=== PATIENT | male | born 1975 | race Caucasian/White ===

== ENCOUNTER 2019-12-31 14:29 | Outpatient (CLI) | payer OTHER, SELFPAY ==
--- NOTE | 2019-12-31 14:46 | ECHO_ITS ---
Patient Info Name: Josh Mahan Age: 44 years : 1975 Gender: Male Ht: 70 in Wt: 220 lbs BSA: 2.25 m2 HR: 73 bpm BP: 142 / 87 mmHg Technical Quality: Fair Exam Date: 12/31/2019 2:50 PM Exam Location: [facility] Patient Status: Outpatient Admit Date: 12/31/2019 Staff Ordering Physician: Dani Serra DO Decker Operator: Fabi Mason RDCS Attending Provider: Dani Serra DO Referring Physician: Ponce TAIRQ; Exam Type: CA echo doppler color flow Study Info Indications I10 - Essential (primary) hypertension Complete two-dimensional, color flow and Doppler transthoracic echocardiogram is performed. Summary 1. Left ventricular chamber dimension is normal. 2. Left ventricular systolic function is normal, estimated at 60-65%. 3. The left ventricular diastolic function is normal. 4. E/e' 8 is minimally elevated. 5. There is trace mitral valve regurgitation. 6. No pulmonary hypertension, estimated pulmonary arterial systolic pressure is 24 mmHg. Left Ventricle E/e' 8 is minimally elevated. Left ventricular chamber dimension is normal. Left ventricular systolic function is normal, estimated at 60-65%. The left ventricular diastolic function is normal. Right Ventricle Right ventricular chamber dimension is normal. Right ventricular systolic function is normal. Left Atria Left atrial chamber dimension is normal. Right Atria Right atrial chamber dimension is normal. Aortic Valve The aortic valve is trileaflet. There is no aortic valve stenosis. There is no aortic valve regurgitation. Pulmonic Valve There is no pulmonic regurgitation. Mitral Valve There is no mitral valve stenosis. There is trace mitral valve regurgitation. Tricuspid Valve There is no tricuspid valve regurgitation. No pulmonary hypertension, estimated pulmonary arterial systolic pressure is 24 mmHg. Pericardium/Pleural There is no pericardial effusion. Inferior Vena Cava Normal inferior vena cava with >50% collapse upon inspiration consistent with normal right atrial pressure, 5 mmHg. Aorta The aortic root size at the sinus of Valsalva is normal. Left Ventricular Outflow Tract Name Value Normal LVOT 2D LVOT Diameter 2.0 cm LVOT Doppler LVOT Peak Velocity 104 cm/s LVOT Peak Gradient 4 mmHg LVOT Mean Gradient 2 mmHg LVOT VTI 19 cm LVOT VTI/AV VTI Ratio 0.8 LVOT Stroke Volume 62 ml LVOT CO 4.6 l/min LVOT CI 2.0 l/min/m2 Pulmonic Valve Name Value Normal RVOT Doppler RVOT Peak Gradient 2 mmHg PV Doppler
== END 2019-12-31 14:30 | disposition home or self-care (01) ==
PROVIDERS: PCP Family Medicine; Visit Provider Internal Medicine Cardiovascular Disease
DX: I10 Essential (primary) hypertension (principal); R55 Syncope and collapse
CPT/HCPCS: 93306

== ENCOUNTER 2021-07-30 07:35 | Outpatient (CLI) | payer OTHER, SELFPAY ==
--- NOTE | ~2021-07-30 | XR_ITS ---
EXAMINATION: XR chest 2V DATE: 07/30/2021 07:58 INDICATION: Nicotine dependence, unspecified TECHNIQUE: PA and lateral views of the chest are obtained. COMPARISON: 09/25/2019 FINDINGS: The lungs are free of acute opacities. There is no pleural effusion or pneumothorax. The ca rdiomediastinal silhouette is normal. The visualized bones and soft tissues are unremarkable. IMPRESSION: 1. No acute cardiopulmonary abnormality. Reviewed, dictated and finalized at location A.
[2021-07-30 18:22] LABS: Basophils Absolute Auto 0.1 K/mm3 (0.0-0.1); Basophils Percent Auto 1.2 % (0.2-1.2); Eosinophils Absolute Auto 0.7 K/mm3 (0-0.3); Eosinophils Percent Auto 9.3 % (0-4.4); Hemoglobin 14.5 g/dL (14.0-18.0); Immature Granulocyte Absolute 0.03 K/mm3 (0.00-0.031); Immature Granulocyte Percent A 0.4 % (0-0.5); Lymphocytes Absolute Auto 2.49 K/mm3 (0.9-3.2); Lymphocytes Percent Auto 32.5 % (18.3-44.2); Mean Corpuscular HGB Conc 31.5 g/dl (32-36); Mean Corpuscular Hemoglobin 26.5 pg (26-34); Mean Corpuscular Volume 83.9 fl (80-100); Mean Platelet Volume 9.9 fl (7.4-10.4); Monocytes Absolute Auto 0.8 K/mm3 (0.1-0.6); Monocytes Percent Auto 9.8 % (2.6-8.5); Neutrophils Absolute Auto 3.6 K/mm3 (1.3-6.7); Neutrophils Percent Auto 46.8 % (45.5-73.1); Platelet Count Result 251 k/mm3 (150-375); Red Blood Count 5.48 M/mm3 (4.6-6.20); Red Cell Distribution Width 13.3 % (11.5-14.5); White Blood Count 7.7 K/mm3 (4.5-10.0)
[2021-07-30 18:24] LABS: Add Urine Microscopic? NO; Appearance Urine Clear (Clear); Bilirubin Urine Negative (Negative); Blood Urine Negative (Negative); Color Urine Yellow (Yellow); Glucose Urine UA Negative (Negative); Ketones Urine Negative (Negative); Leukocyte Esterase Ur Negative LEU/UL (Negative); Nitrate Urine Negative (Negative); Protein Urine Negative (Negative); Specific Grav Ur 1.024 (1.001-1.035); Urobilinogen Urine Negative mg/dL (<2.0)
[2021-07-30 18:42] LABS: Alanine Aminotransferase 44 U/L (4-50); Albumin Level 4.3 g/dL (3.5-5.1); Alkaline Phosphatase 68 U/L (38-126); Anion Gap 9 mmol/L (8-16); Aspartate Amino Transferase 32 U/L (17-59); Bilirubin,Total 0.5 mg/dL (0.2-1.3); Blood Urea Nitrogen 14 mg/dL (9-20); Calcium 9.2 mg/dL (8.4-10.2); Carbon Dioxide 26 mmol/L (22-30); Chloride 104 mmol/L (98-107); Cholesterol 201 mg/dL (0-200); Estimated Glomerular Filt Rate > 60; Glucose 114 mg/dL (65-110); HDL Direct 42 mg/dL; Potassium 4.4 mmol/L (3.4-5.0); Sodium 139 mmol/L (137-145); Triglycerides 210 mg/dL (<150)
[2021-07-30 18:53] LABS: LDL Cholesterol Direct 99 mg/dL
[2021-07-30 19:45] LABS: Folic Acid 7.1 ng/mL (2.76->20)
[2021-07-30 20:49] LABS: Vitamin D 25 Hydroxy 28.9 ng/mL
== END 2021-07-30 07:36 | disposition home or self-care (01) ==
LOC: ANHBWCLAB 07:38
PROVIDERS: PCP Family Medicine; Visit Provider Family Medicine
DX: E78.5 Hyperlipidemia, unspecified (principal); R00.0 Tachycardia, unspecified; R79.89 Other specified abnormal findings of blood chemistry; I10 Essential (primary) hypertension; F17.200 Nicotine dependence, unspecified, uncomplicated; Z00.00 Encounter for general adult medical examination without abnormal findings; Z79.899 Other long term (current) drug therapy
CPT/HCPCS: 36415; 71046; 80053; 80061; 81003; 82306; 82607; 82746; 84443; 85025

== ENCOUNTER 2023-05-11 10:00 | Outpatient (CLI) | payer OTHER, SELFPAY ==
[2023-05-11 20:59] LABS: Hemoglobin A1C 5.5 % (<5.7)
[2023-05-11 21:05] LABS: Alanine Aminotransferase 30 U/L (6-50); Albumin Level 4.2 g/dL (3.5-5.1); Alkaline Phosphatase 70 U/L (38-126); Anion Gap 4 mmol/L (8-16); Aspartate Amino Transferase 72 U/L (17-59); Bilirubin,Total 0.4 mg/dL (0.2-1.3); Blood Urea Nitrogen 13 mg/dL (9-20); Calcium 8.7 mg/dL (8.4-10.2); Carbon Dioxide 29 mmol/L (22-30); Chloride 102 mmol/L (98-107); Cholesterol 212 mg/dL (0-200); Estimated Glomerular Filt Rate > 60; Glucose 103 mg/dL (65-110); HDL Direct 39 mg/dL; LDL Cholesterol Direct 132 mg/dL; Potassium 4.4 mmol/L (3.4-5.0); Sodium 135 mmol/L (137-145); Triglycerides 152 mg/dL (<150)
[2023-05-11 21:06] LABS: Total Protein 7.3 g/dL (6.3-8.2)
[2023-05-11 21:11] LABS: Hematocrit 46.1 % (42.0-52.0); Hemoglobin 13.9 g/dL (14.0-18.0); Mean Corpuscular HGB Conc 30.2 g/dl (32-36); Mean Corpuscular Hemoglobin 26.6 pg (26-34); Mean Corpuscular Volume 88.3 fl (80-100); Mean Platelet Volume 9.6 fl (7.4-10.4); Platelet Count Result 276 k/mm3 (150-375); Red Blood Count 5.22 M/mm3 (4.6-6.20); Red Cell Distribution Width 14.8 % (11.5-14.5); White Blood Count 6.4 K/mm3 (4.5-10.0)
== END 2023-05-11 10:01 | disposition home or self-care (01) ==
LOC: ANHBWCLAB 19:57
PROVIDERS: PCP Family Medicine; Visit Provider Family Medicine
DX: E78.5 Hyperlipidemia, unspecified (principal); I10 Essential (primary) hypertension; R73.09 Other abnormal glucose; J32.9 Chronic sinusitis, unspecified
CPT/HCPCS: 36415; 80053; 80061; 83036; 85027

== ENCOUNTER 2023-11-14 08:38 | Outpatient (CLI) | payer OTHER, SELFPAY ==
[2023-11-14 19:43] LABS: Basophils Absolute Auto 0.1 K/mm3 (0.0-0.1); Basophils Percent Auto 0.9 % (0.2-1.2); Eosinophils Absolute Auto 0.4 K/mm3 (0-0.3); Eosinophils Percent Auto 6.4 % (0-4.4); Hemoglobin 14.6 g/dL (14.0-18.0); Immature Granulocyte Absolute 0.01 K/mm3 (0.00-0.031); Immature Granulocyte Percent A 0.2 % (0-0.5); Lymphocytes Absolute Auto 2.11 K/mm3 (0.9-3.2); Lymphocytes Percent Auto 36.4 % (18.3-44.2); Mean Corpuscular HGB Conc 30.4 g/dl (32-36); Mean Corpuscular Volume 85.4 fl (80-100); Mean Platelet Volume 9.7 fl (7.4-10.4); Monocytes Absolute Auto 0.5 K/mm3 (0.1-0.6); Monocytes Percent Auto 9.3 % (2.6-8.5); Neutrophils Absolute Auto 2.7 K/mm3 (1.3-6.7); Neutrophils Percent Auto 46.8 % (45.5-73.1); Platelet Count Result 253 k/mm3 (150-375); Red Blood Count 5.62 M/mm3 (4.6-6.20); Red Cell Distribution Width 13.2 % (11.5-14.5); White Blood Count 5.8 K/mm3 (4.5-10.0)
[2023-11-14 20:42] LABS: Alanine Aminotransferase 33 U/L (6-50); Albumin Level 4.3 g/dL (3.5-5.1); Alkaline Phosphatase 74 U/L (38-126); Anion Gap 8 mmol/L (8-16); Aspartate Amino Transferase 35 U/L (17-59); Bilirubin,Total 0.5 mg/dL (0.2-1.3); Blood Urea Nitrogen 14 mg/dL (9-20); Calcium 9.1 mg/dL (8.4-10.2); Carbon Dioxide 25 mmol/L (22-30); Chloride 106 mmol/L (98-107); Cholesterol 245 mg/dL (0-200); Estimated Glomerular Filt Rate > 60; Glucose 112 mg/dL (65-110); HDL Direct 38 mg/dL; Potassium 4.4 mmol/L (3.4-5.0); Sodium 139 mmol/L (137-145); Triglycerides 199 mg/dL (<150)
[2023-11-14 20:55] LABS: LDL Cholesterol Direct 143 mg/dL
== END 2023-11-14 08:39 | disposition home or self-care (01) ==
LOC: ANHBWCLAB 08:39
PROVIDERS: PCP Family Medicine; Visit Provider Nurse Practitioner Adult Health
DX: I10 Essential (primary) hypertension (principal)
CPT/HCPCS: 36415; 80053; 80061; 85025

== ENCOUNTER 2024-03-28 06:32 | Outpatient (CLI) | payer OTHER, SELFPAY ==
[2024-03-28 19:19] LABS: Basophils Percent Auto 0.6 % (0.2-1.2); Eosinophils Absolute Auto 0.4 K/mm3 (0-0.3); Eosinophils Percent Auto 6.1 % (0-4.4); Hemoglobin 14.6 g/dL (14.0-18.0); Immature Granulocyte Absolute 0.02 K/mm3 (0.00-0.031); Immature Granulocyte Percent A 0.3 % (0-0.5); Lymphocytes Absolute Auto 2.32 K/mm3 (0.9-3.2); Mean Corpuscular HGB Conc 29.8 g/dl (32-36); Mean Corpuscular Hemoglobin 26.2 pg (26-34); Mean Platelet Volume 9.8 fl (7.4-10.4); Monocytes Absolute Auto 0.7 K/mm3 (0.1-0.6); Neutrophils Absolute Auto 3.4 K/mm3 (1.3-6.7); Platelet Count Result 245 k/mm3 (150-375); Red Blood Count 5.57 M/mm3 (4.6-6.20); Red Cell Distribution Width 14.2 % (11.5-14.5); White Blood Count 6.8 K/mm3 (4.5-10.0)
[2024-03-28 19:43] LABS: Alanine Aminotransferase 31 U/L (6-50); Albumin Level 4.5 g/dL (3.5-5.1); Alkaline Phosphatase 78 U/L (38-126); Anion Gap 5 mmol/L (4-12); Aspartate Amino Transferase 42 U/L (17-59); Bilirubin,Total 0.3 mg/dL (0.2-1.3); Blood Urea Nitrogen 15 mg/dL (9-20); Calcium 9.3 mg/dL (8.4-10.2); Carbon Dioxide 27 mmol/L (22-30); Chloride 104 mmol/L (98-107); Cholesterol 240 mg/dL (0-200); Estimated Glomerular Filt Rate > 60; Glucose 105 mg/dL (65-110); HDL Direct 39 mg/dL; Magnesium 2.3 mg/dL (1.6-2.3); Potassium 4.5 mmol/L (3.4-5.0); Sodium 136 mmol/L (137-145); Triglycerides 363 mg/dL (<150)
[2024-03-28 19:44] LABS: Vitamin D 25 Hydroxy 17.5 ng/mL
[2024-03-28 19:53] LABS: LDL Cholesterol Direct 139 mg/dL
[2024-03-28 20:10] LABS: Hemoglobin A1C 5.6 % (<5.7)
== END 2024-03-28 06:33 | disposition home or self-care (01) ==
PROVIDERS: PCP Nurse Practitioner Adult Health; Visit Provider Nurse Practitioner Adult Health
DX: R79.89 Other specified abnormal findings of blood chemistry (principal); R73.9 Hyperglycemia, unspecified; I10 Essential (primary) hypertension
CPT/HCPCS: 36415; 80053; 80061; 82306; 83036; 83735; 84443; 85025

== ENCOUNTER 2024-04-30 06:35 | Outpatient (CLI) | payer OTHER, SELFPAY ==
[2024-04-30 19:43] LABS: Alanine Aminotransferase 31 U/L (6-50); Albumin Level 4.4 g/dL (3.5-5.1); Alkaline Phosphatase 69 U/L (38-126); Aspartate Amino Transferase 48 U/L (17-59); Bilirubin,Total 0.5 mg/dL (0.2-1.3); Cholesterol 171 mg/dL (0-200); HDL Direct 40 mg/dL; Triglycerides 167 mg/dL (<150)
[2024-04-30 19:54] LABS: LDL Cholesterol Direct 104 mg/dL
== END 2024-04-30 06:36 | disposition home or self-care (01) ==
LOC: ANHBWCLAB 06:36
PROVIDERS: PCP Nurse Practitioner Adult Health; Visit Provider Nurse Practitioner Adult Health
DX: E78.5 Hyperlipidemia, unspecified (principal)
CPT/HCPCS: 36415; 80061; 80076

== ENCOUNTER 2024-09-06 08:44 | Day surgery (SDC) | payer OTHER, SELFPAY ==
[2024-08-22 08:41] VITALS: BMI 30.6
[2024-08-27 08:59] VITALS: BMI 32.5
--- NOTE | 2024-09-06 07:06 | WPDANESEPPF ---
Anes - Initial Pre Proc Eval Procedure: Operation Date: 09/06/24 11:00 Proposed Procedures p Diagnostic Colonoscopy - Brandt Nguyen MD Date/Time: 09/06/24 07:06 Surgeon: Brandt Nguyen MD Pre Op Diagnosis: positive cologuard test Patient Data Age: 48 Gender: M Height: 1.75 m Weight: 100 kg Allergies Allergy/AdvReac Type Severity Reaction Status Date / Time No Known Allergies Allergy Verified 09/06/24 10:15 Home Medications Medication Instructions Recorded Confirmed Type albuterol sulfate 90 mcg/actuation 1 puff inhalation Q4H PRN 11/15/23 09/06/24 Rx aerosol inhaler shortness of breath or wheezing #8.5 grams cholecalciferol (vitamin D3) 1,250 1,250 mcg PO WEEKLY #12 caps 03/29/24 09/06/24 Rx mcg (50,000 unit) capsule lisinopril 20 mg tablet 20 mg PO DAILY #90 tabs 08/13/24 09/06/24 Rx amlodipine 5 mg tablet 5 mg PO DAILY 08/27/24 09/06/24 History ibuprofen 200 mg tablet 200 mg PO Q6H PRN Pain 08/27/24 09/06/24 History ketoconazole 2 % topical cream 1 applic topical DAILY PRN Rash 08/27/24 History metoprolol succinate 100 mg 100 mg PO DAILY 08/27/24 09/06/24 History tablet,extended release 24 hr pravastatin 40 mg tablet 40 mg PO HS 08/27/24 09/06/24 History Patient hx anesthesia problems: none Family hx anesthesia problems: none Results Review: All pre-operative results and documents have been reviewed as part of the pre-operative evaluation. 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 Smoker Syncope (~09/2019) Tachycardia Surgical History Surgical History History of carpal tunnel release Family History Family History Grandparent Diabetes mellitus Social History Social History Smoking packs per day: 1 Smoking cigarettes per day: 20.0 Years smoked: 30 Smoking pack-years: 30.00 Smoking status: Current every day smoker Tobacco type: cigarettes Alcohol intake: current Drinks per week: 15 Substance use: current Substance use type: marijuana Other substance usage details: Daily Lack of Transportation: No Lack of Food: Never True Current Housing: I Have Housing Concerned About Future Housing: No Difficulty Paying Gas/Electric Bills: No Difficulty Paying for Meds: No Currently Unemployed: No Education: Trade/Vocational Certificate Difficulty w/ Childcare or Family Care: No Living arrangements: with family Spiritual care concerns: No Anes - Eval Final PreProcedure Day of Procedure 09/06/24 07:06 Patient weight: obese Heart: regular rate and rhythm Lungs: clear to auscultation Airway: Mallampati scale class II Neurological: alert and oriented Last oral intake: >/= 8 hours ASA classification: III Emergent: no Anesthetic plan: proceed Anesthesia type and monitoring: general GIVS and standard monitoring Results Review: All pre-operative results and documents have been reviewed as part of the pre-operative evaluation. Informed Consent: The patient's anesthetic plan and its attendant risks and benefits were discussed with the patient/family/POA. Questions were solicited and answers provided to the satisfaction of the patient/family/POA.
[2024-09-06 10:19] VITALS: BP 137/93; PULSE 90; RESP 18; TEMP 36.9; O2SAT 97; BMI 31.6
[2024-09-06] MEDS: LACTATED RINGERS 1,000 ML 150 ML IV CONT (10:24)
--- NOTE | 2024-09-06 10:37 | PM.HPGS ---
History of Present Illness History of Present Illness Consent: Risks, benefits, and alternatives have been discussed and questions answered. Patient agrees to proceed with procedure. Chief complaint: positive cologuard test Narrative: Josh Mahan is a 48 year old male presents for colonoscopy. Patient's current weight appetite and bowel movements are normal. He denies abdominal pain. Patient has had no bleeding. We history noncontributory. Recent Cologuard test was found to be positive. Patient presents today for screening colonoscopy for this reason. Review of Systems Review of Systems: All systems reviewed & are unremarkable except as noted in HPI and below PMFSH Past Medical History Medical History (Updated 05/02/24 @ 15:05 by Sylvie Paz APRN) Allergies Anxiety Arthritis Bronchitis Family history of osteoporosis Fatigue History of broken nose History of pericarditis Hyperlipidemia Hypertension (~09/2019) Intermittent palpitations Low serum vitamin D (~09/2019) Other termite technician (current) drug therapy Smoker Syncope (~09/2019) Tachycardia Surgical History Surgical History History of carpal tunnel release Family History Family History Grandparent Diabetes mellitus Social History Social History Smoking packs per day: 1 Smoking cigarettes per day: 20.0 Years smoked: 30 Smoking pack-years: 30.00 Smoking status: Current every day smoker Tobacco type: cigarettes Alcohol intake: current Drinks per week: 15 Substance use: current Substance use type: marijuana Other substance usage details: Daily Lack of Transportation: No Lack of Food: Never True Current Housing: I Have Housing Concerned About Future Housing: No Difficulty Paying Gas/Electric Bills: No Difficulty Paying for Meds: No Currently Unemployed: No Education: Trade/Vocational Certificate Difficulty w/ Childcare or Family Care: No Living arrangements: with family Spiritual care concerns: No Meds Home Medications and Allergies Home Medications Medication Instructions Recorded Confirmed Type albuterol sulfate 90 mcg/actuation 1 puff inhalation Q4H PRN 11/15/23 09/06/24 Rx aerosol inhaler shortness of breath or wheezing #8.5 grams cholecalciferol (vitamin D3) 1,250 1,250 mcg PO WEEKLY #12 caps 03/29/24 09/06/24 Rx mcg (50,000 unit) capsule lisinopril 20 mg tablet 20 mg PO DAILY #90 tabs 08/13/24 09/06/24 Rx amlodipine 5 mg tablet 5 mg PO DAILY 08/27/24 09/06/24 History ibuprofen 200 mg tablet 200 mg PO Q6H PRN Pain 08/27/24 09/06/24 History ketoconazole 2 % topical cream 1 applic topical DAILY PRN Rash 08/27/24 History metoprolol succinate 100 mg 100 mg PO DAILY 08/27/24 09/06/24 History tablet,extended release 24 hr pravastatin 40 mg tablet 40 mg PO HS 08/27/24 09/06/24 History Allergies Allergy/AdvReac Type Severity Reaction Status Date / Time No Known Allergies Allergy Verified 09/06/24 10:15 Vital Signs Vital Signs - 24 hr 09/06/24 10:19 Temperature 98.4 F Pulse Rate 90 Respiratory Rate 18 Blood Pressure 137/93 H Pulse Oximetry 97 Oxygen Delivery Room Air Exam Narrative: Physical exam reveals patient to be alert. Vital signs stable. Exam is unremarkable. Patient is anicteric. Auscultation and percussion. Is without murmur or extra sounds. Abdomen bowel sounds are present soft nontender with no organomegaly. Digital external rectal exam normal. Assessment and Plan Assessment and plan (1) Positive colorectal cancer screening using Cologuard test: Code(s): R19.5 - Other fecal abnormalities Status: Acute Assessment and Plan: Patient found to have positive Cologuard test. Screening colonoscopy to be performed today. Further recommendations may b
[2024-09-06 12:50] VITALS: BP 128/91; PULSE 100; RESP 20; O2SAT 98
--- NOTE | 2024-09-06 12:55 | SUR.OPER ---
no specimen collected for sigmoid polyp, aware
[2024-09-06 13:00] VITALS: BP 132/92; PULSE 94; RESP 20; O2SAT 99
[2024-09-06 13:10] VITALS: BP 145/101; PULSE 86; RESP 20; O2SAT 100
--- NOTE | 2024-09-06 13:33 | WPDANESPN ---
Anes - Prog Note Post-Op Date/Time: 09/06/24 13:33 Cardiovascular status: normal Respiratory status: normal Airway patency: baseline Mental status: baseline Post-Op hydration status: normal Vital Signs: Last Vital Signs Temp 36.9 C 09/06/24 10:19 Pulse 86 09/06/24 13:10 Resp 20 09/06/24 13:10 BP 145/101 H 09/06/24 13:10 Pulse Ox 100 09/06/24 13:10 O2 Del Method Room Air 09/06/24 13:10 Pain Score (VAS): 0 I/O: Intake & Output 09/05/24 09/06/24 09/06/24 23:59 07:59 15:59 Intake Total 800 Balance 800 Post-procedural complaints: none Patient Feedback: Patient satisfied with anesthetic care. Other Findings: Patient vital signs back to baseline. Patient denies nausea and vomiting. Patient's pain under control. Patient OK for discharge.
== END 2024-09-06 13:12 | disposition home or self-care (01) ==
PROVIDERS: PCP Nurse Practitioner Adult Health; Visit Provider Internal Medicine Gastroenterology
PROC: 0DJD8ZZ Inspection of Lower Intestinal Tract, Via Natural or Artificial Opening Endoscopic (ICD-10-PCS; CPT 45378; principal; 2024-09-06 11:00)
DX: R19.5 Other fecal abnormalities (principal); D12.3 Benign neoplasm of transverse colon; D12.5 Benign neoplasm of sigmoid colon; K64.8 Other hemorrhoids
CPT/HCPCS: 45385

== ENCOUNTER 2024-09-06 09:06 | Outpatient (NON) | payer OTHER, SELFPAY | END 2024-09-06 09:07 | disposition home or self-care (01) | LOC: ANHLAB 09-07 09:09 | PROVIDERS: PCP Nurse Practitioner Adult Health; Visit Provider Internal Medicine Gastroenterology | DX: D12.3 Benign neoplasm of transverse colon (principal); Z12.11 Encounter for screening for malignant neoplasm of colon | CPT/HCPCS: 88305 ==

== ENCOUNTER 2025-07-17 02:40 | Day surgery (SDC) | payer OTHER, SELFPAY ==
[2025-07-04 10:45] VITALS: BMI 33.0
--- OUTSIDE RECORDS SUMMARY | 2025-07-17 02:43 | XMS_ITS | Clinical Summary ---
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
--- OUTSIDE RECORDS SUMMARY | 2025-07-17 02:43 | XMS_ITS | Encounter Summary ---
Author Organization [facility] Address [address] [place] [address] Care Team Providers Care Shoe Repairman Name Role Phone Patirck Allen MD Primary Care Provider Unavail le Encounter Details Date Type Department Care Team (Late st Contact Info) Description 07/07/2012 Chart Note 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 Physical Therapy Discharge Summary Patient: Josh Mahan Date: 07/07/2012 Date of : 1975 Physician: Tunde Kim Diagnosis: thoracic outlet syndrome Josh Mahan was seen 03/08/12 for a total of 1 visit with 0 cancellations and 0 no shows. This patient did not return for further therapy visits following the last session noted above, therefore a complete re-evaluation of status was not completed. Treatments consisted of: HEP Instruction, Posture/Body Mechanics and Neuromuscular Re-Education Therapeutic Exercise to increase Strength and Flexibility. Objective Measurements: see initial note on 03/08/12 The patient discharged from therapy secondary to noncompliance. Please contact me if you have any questions. Thank you for this referral. Lara Esposito [facility] [address] [place] [address] documented in this encounter Plan of Treatment Not on file documented as of this encounter Visit Diagnoses Not on filedocumented in this encounter Care Teams Shoe Repairman Relationship Specialty Start Date End Date Patrick Allen MD PCP - General Internal Medicine 03/07/12 documented as of this encounter
[2025-07-17 08:39] VITALS: BP 161/96; PULSE 70; RESP 20; TEMP 35.9; O2SAT 100; BMI 33.3
[2025-07-17] MEDS: LACTATED RINGERS 1,000 ML 150 ML IV CONT (08:55)
--- NOTE | 2025-07-17 08:56 | P.PNAN_ITS ---
Anes - Initial Pre Proc Eval Procedure: Operation Date: 07/17/25 08:45 Proposed Procedures p Esophagogastroduodenoscopy - Terry Murguia MD Date/Time: 07/17/25 08:56 Surgeon: Terry Murguia MD Pre Op Diagnosis: Dysphagia, unspecified Patient Data Age: 49 Gender: M Height: 1.78 m Weight: 105.3 kg Last Vital Signs Temp 35.9 C L 07/17/25 08:39 Pulse 70 07/17/25 08:39 Resp 20 07/17/25 08:39 BP 161/96 H 07/17/25 08:39 Pulse Ox 100 07/17/25 08:39 O2 Del Method Room Air 07/17/25 08:39 Allergies Allergy/AdvReac Type Severity Reaction Status Date / Time No Known Allergies Allergy Verified 07/17/25 08:38 Home Medications ?Medication ?Instructions ?Recorded ?Confirmed ?Type albuterol sulfate 90 mcg/actuation 1 puff inhalation Q 4H PRN 11/15/23 07/04/25 Rx aerosol inhaler shortness of breath or wheez ing #8.5 grams cholecalciferol (vitamin D3) 1,250 1,250 mcg PO WEEKLY #12 caps 03/29/24 07/17/25 Rx mcg (50,000 unit) capsule ketoconazole 2 % topical cream 1 applic topical DAILY PRN Rash 08/27/24 07/17/25 History amlodipine 5 mg tablet See Rx Instructions .Route 0 04/17/25 07/17/25 Rx .COMPLEX #90 tabs lisinopril 20 mg tablet See Rx Instructions .Route 0 04/17/25 07/17/25 Rx .COMPLEX #90 tabs metoprolol succinate 100 mg See Rx Instructions .Route 04/17/25 07/17/25 Rx tablet,extended release 24 hr .COMPLEX #90 tabs pravastatin 40 mg tablet See Rx Instructions .Route 0 04/17/25 07/17/25 Rx .COMPLEX #90 tabs Patient hx anesthesia problems: none Family hx anesthesia problems: none Results Review: All pre-operative results and documents have been reviewed as part of the pre- operative evaluation. [facility] Past Medical History Medical History Hyperlipidemia Intermittent palpitations Arthritis History of broken nose Syncope (~09/2019) Anxiety History of pericarditis Tachycardia Low serum vitamin D (~09/2019) Family history of osteoporosis Smoker Other intermediate teacher (current) drug therapy Fatigue Hypertension (~09/2019) Bronchitis Allergies Surgical History Surgical History History of carpal tunnel release Family History Family History Grandparent Diabetes mellitus Social History Social History Smoking packs per day: 1 Smoking cigarettes per day: 20.0 Years smoked: 30 Smoking pack-years: 30.00 Smoking status: Current every day smoker Tobacco type: cigarettes Alcohol intake: current Drinks per week: 6 Substance use: current Substance use type: marijuana Other substance usage details: smokes marijuana several times a week Lack of Transportation: No Lack of Food: Never True Current Housing: I Have Housing Concerned About Future Housing: No Difficulty Paying Gas/Electric Bills: No Difficulty Paying for Meds: No Currently Unemployed: No Education: Trade/Vocational Certificate Difficulty w/ Childcare or Family Care: No Living arrangements: with family Spiritual care concerns: No Anes - Eval Final PreProcedure Day of Procedure 07/17/25 08:56 Patient weight: obese Heart: regular rate and rhythm Lungs: clear to auscultation Airway: Mallampati scale class II Neurological: alert and oriented Last oral intake: >/= 8 hours ASA classification: III Emergent: no Anesthetic plan: proceed Anesthesia type and monitoring: general GIVS and standard monitoring Results Review: All pre-operative results and documents have been reviewed as part of the pre- operative evaluation. Informed Consent: The patient's anesthetic plan and its attendant risks and benefits were discussed with the patient/family/POA. Questions were solicited and answers provided to the satisfaction of the patient/family/POA.
--- NOTE | 2025-07-17 09:31 | PM.HPGS ---
History of Present Illness History of Present Illness Consent: Risks, benefits, and alternatives have been discussed and questions answered. Patient agrees to proceed with procedure. Chief complaint: Dysphagia, unspecified Narrative: Josh Mahan is a 49 year old male with dysphagia for about 1 year, never had egd Review of Systems Review of Systems: All systems reviewed & are unremarkable except as noted in HPI and below PMFSH Past Medical History Medical History Hyperlipidemia Intermittent palpitations Arthritis History of broken nose Syncope (~09/2019) Anxiety History of pericarditis Tachycardia Low serum vitamin D (~09/2019) Family history of osteoporosis Smoker Other technician terminal and repeater (current) drug therapy Fatigue Hypertension (~09/2019) Bronchitis Allergies Surgical History Surgical History History of carpal tunnel release Family History Family History Grandparent Diabetes mellitus Social History Social History Smoking packs per day: 1 Smoking cigarettes per day: 20.0 Years smoked: 30 Smoking pack-years: 30.00 Smoking status: Current every day smoker Tobacco type: cigarettes Alcohol intake: current Drinks per week: 6 Substance use: current Substance use type: marijuana Other substance usage details: smokes marijuana several times a week Lack of Transportation: No Lack of Food: Never True Current Housing: I Have Housing Concerned About Future Housing: No Difficulty Paying Gas/Electric Bills: No Difficulty Paying for Meds: No Currently Unemployed: No Education: Trade/Vocational Certificate Difficulty w/ Childcare or Family Care: No Living arrangements: with family Spiritual care concerns: No Meds Home Medications and Allergies Home Medications ?Medication ?Instructions ?Recorded ?Confirmed ?Type albuterol sulfate 90 mcg/actuation 1 puff inhalation Q4H PRN 11/15/23 07/04/25 Rx aerosol inhaler shortness of breath or wheezing #8.5 grams cholecalciferol (vitamin D3) 1,250 1,250 mcg PO WEEKLY #12 caps 03/29/24 07/17/25 Rx mcg (50,000 unit) capsule ketoconazole 2 % topical cream 1 applic topical DAILY PRN Rash 08/27/24 07/17/25 History amlodipine 5 mg tablet See Rx Instructions .Route 04/17/25 07/17/25 Rx .COMPLEX #90 tabs lisinopril 20 mg tablet See Rx Instructions .Route 04/17/25 07/17/25 Rx .COMPLEX #90 tabs metoprolol succinate 100 mg See Rx Instructions .Route 04/17/25 07/17/25 Rx tablet,extended release 24 hr .COMPLEX #90 tabs pravastatin 40 mg tablet See Rx Instructions .Route 04/17/25 07/17/25 Rx .COMPLEX #90 tabs Allergies Allergy/AdvReac Type Severity Reaction Status Date / Time No Known Allergies Allergy Verified 07/17/25 08:38 Vital Signs Vital Signs - 24 hr 07/17/25 08:39 Temperature 96.7 F L Pulse Rate 70 Respiratory Rate 20 Blood Pressure 161/96 H Pulse Oximetry 100 Oxygen Delivery Room Air Exam Const: General: comfortable and no acute distress HENMT: Face/Nose/Sinus: Normal nares present Eyes: General: appearance normal, both eyes and all related structures Neck: Neck: no JVD Resp: Auscultation: clear to auscultation bilaterally Cardio: Rate: regular rate Rhythm: regular rhythm GI: Inspection: non-distended GI Palp: Yes Soft to palpation Skin: General skin exam: normal color Neuro: General: gait normal Speech: normal speech Extrem: General: normal to inspection Psych: Mental Status: mental status grossly normal Assessment and Plan Assessment and plan (1) Dysphagia: Code(s): R13.10 - Dysphagia, unspecified Status: Acute Assessment and Plan: egd
[2025-07-17] MEDS: BENZOCAINE (*SP) 60 ML SPRAY CAN (HURRICAINE) 1 SPRAY MUCOUS MEM (09:39)
--- NOTE | 2025-07-17 09:45 | S_PTH ---
PATIENT: oJsh Mahan LOC: [facility] [place]#:[id number] AGE/SX: 49/M ROOM: RE07/17/[address]: Terry Murguia MD : 1975 BED: DIS: 07/17/2025 SPEC #: [id number] RECD: 07/17/25 10:20 STATUS: YANN REAyanna #: [id number] AIME: 07/17/25 09:[address]: Terry Murguia DEPT: [facility] Surgical RECD BY: Diane Amaro ENTERED: 07/17/25 10:21 SP TYPE: Surgical OTHR DR: Sylvie Paz APRN Tissues: A - Gastric Biopsy B - Esophageal Biopsy C - Esophageal Biopsy Procedures: Hematoxylin and Eosin Stain Gross and Microscopic Level 4
[2025-07-17 09:48] VITALS: BP 136/84; PULSE 83; RESP 27; O2SAT 97
[2025-07-17 09:58] VITALS: BP 130/80; PULSE 73; RESP 23; O2SAT 99
[2025-07-17 10:08] VITALS: BP 133/89; PULSE 70; RESP 18; O2SAT 100
== END 2025-07-17 10:12 | disposition home or self-care (01) ==
PROVIDERS: PCP Nurse Practitioner Adult Health; Referring Provider Nurse Practitioner Adult Health; Visit Provider Internal Medicine Gastroenterology
PROC: 0DJ08ZZ Inspection of Upper Intestinal Tract, Via Natural or Artificial Opening Endoscopic (ICD-10-PCS; principal; 2025-07-17 08:45)
DX: K20.0 Eosinophilic esophagitis (principal); E78.5 Hyperlipidemia, unspecified; F41.9 Anxiety disorder, unspecified; E55.9 Vitamin D deficiency, unspecified; I10 Essential (primary) hypertension; R00.2 Palpitations; R00.0 Tachycardia, unspecified; R53.83 Other fatigue; M19.90 Unspecified osteoarthritis, unspecified site; F17.210 Nicotine dependence, cigarettes, uncomplicated; F12.90 Cannabis use, unspecified, uncomplicated; E66.9 Obesity, unspecified; Z68.33 Body mass index [BMI] 33.0-33.9, adult; Z79.51 Long term (current) use of inhaled steroids; Z79.899 Other long term (current) drug therapy; Z98.890 Other specified postprocedural states; Z86.79 Personal history of other diseases of the circulatory system
CPT/HCPCS: 43239; 88305; J2003; J2704; J7120

== ENCOUNTER 2025-10-31 06:36 | Outpatient (CLI) | payer OTHER, SELFPAY ==
[2025-11-04 00:07] LABS: Free Testosterone (Direct) 8.8 pg/mL (6.8-21.5)
== END 2025-10-31 06:37 | disposition home or self-care (01) ==
PROVIDERS: PCP Nurse Practitioner Adult Health; Visit Provider Nurse Practitioner Adult Health
DX: R53.83 Other fatigue (principal)
CPT/HCPCS: 84402; 84403